=== PATIENT | male | born 1980 | race Caucasian/White ===

== ENCOUNTER 2018-06-23 11:10 | Emergency (ER) | payer BC ==
[~2018-06-23] VITALS: Ht 172.7 cm; Wt 74.8 kg
[2018-06-23 11:16] VITALS: Ht 172.7 cm; Wt 74.8 kg
[2018-06-23 12:16] VITALS: BP 126/62
== END 2018-06-23 12:36 | disposition home or self-care (01) ==
LOC: ED 11:10
DX: H57.89 Other specified disorders of eye and adnexa (principal)